=== PATIENT | female | born 1975 | race Two or more races ===

== ENCOUNTER 2024-05-23 17:42 | Inpatient (IN) | payer OTHER ==
[2024-05-23 18:22] VITALS: BMI 26.9
[2024-05-23] MEDS ORDERED: BISMUTH SUBSALICYLATE 524 MG/30 ML PO PRN (18:36)
[2024-05-23] MEDS ORDERED: LOPERAMIDE HCL 2 MG CAPSULE PO PRN (18:36)
[2024-05-23] MEDS ORDERED: BENZONATATE 200 MG CAPSULE PO PRN (18:36)
[2024-05-23] MEDS ORDERED: POLYETHYLENE GLYCOL (HEALTHYLAX) 3350 17 GM PACKET PO PRN (18:36)
[2024-05-23] MEDS ORDERED: ACETAMINOPHEN 325 MG TABLET (FP) PO PRN (18:36)
[2024-05-23] MEDS ORDERED: MAGNESIUM HYDROX 2400MG/30ML ORAL SUSPENSION 30 ML CUP PO PRN (18:36)
[2024-05-23] MEDS ORDERED: IBUPROFEN 400 MG TABLET (FP) PO PRN (18:36)
[2024-05-23] MEDS ORDERED: ONDANSETRON *ODT* 4 MG TABLET SL PRN (18:36)
[2024-05-23] MEDS ORDERED: BENZOCAINE/MENTHOL (CHLORASEPTIC ) LOZENGE MM PRN (18:36)
[2024-05-23] MEDS ORDERED: MAG HYDROX/AL HYDROX/SIMETH 30 ML UNIT-DOSE CUP PO PRN (18:36)
[2024-05-23] MEDS ORDERED: guaiFENesin 600 MG TABLET.ER (FP) PO PRN (18:36)
[2024-05-23] MEDS ORDERED: IBUPROFEN 600 MG TABLET (FP) PO PRN (18:36)
[2024-05-23] MEDS: METOPROLOL TARTRATE 25 MG TABLET (FP) PO ONE (19:26)
[2024-05-23] MEDS ORDERED: METOPROLOL TARTRATE 25 MG TABLET (FP) ONE (19:28)
[2024-05-23] MEDS: THIAMINE 100 MG TABLET PO SCH (22:03)
[2024-05-23] MEDS: METHOCARBAMOL 500 MG TABLET PO PRN (22:03)
[2024-05-23] MEDS: MELATONIN 5 MG TABLETS PO SCH (22:03)
[2024-05-23] MEDS: diazePAM 5 MG TABLET PO SCH (22:03)
[2024-05-24] MEDS: PRENATAL VITAMINS W/ FOLIC ACID TABLET (FP) PO SCH (10:31)
[2024-05-24] MEDS: amLODIPine BESYLATE 5 MG TABLET (FP) PO SCH (10:31)
[2024-05-24] MEDS: DICYCLOMINE HCL 10 MG CAPSULE PO PRN (10:32)
[2024-05-24 14:53] LABS: HEMATOCRIT 35.6 % (32.4-45.2); HEMOGLOBIN 11.1 GM/dL (10.7-15.3); MCH 24.5 pg (25.7-33.7); MCHC 31.2 g/dl (32.0-36.0); MEAN CELL VOLUME 78.5 fl (80-96); MEAN PLT VOLUME 7.9 fl (7.5-11.1); PLATELET COUNT 369 10^3/uL (134-434); RBC 4.53 M/mm3 (3.60-5.2); RDW 19.5 % (11.6-15.6); WHITE BLOOD COUNT 5.3 K/mm3 (4.0-10.0)
[2024-05-24 15:00] LABS: POTASSIUM 4.4 mmol/L (3.5-5.1)
[2024-05-24 15:02] LABS: CALCIUM 8.5 mg/dL (8.5-10.1)
[2024-05-24 15:03] LABS: ALBUMIN 3.2 g/dl (3.4-5.0); BLOOD UREA NITROGEN 7.5 mg/dL (7-18)
[2024-05-24 15:06] LABS: CREATININE 0.7 mg/dL (0.55-1.3)
[2024-05-24 15:08] LABS: BILIRUBIN,TOTAL 0.7 mg/dL (0.2-1); TOT PROT 7.6 g/dl (6.4-8.2)
[2024-05-24 15:56] LABS: HIV INTERPRETATION NEGATIVE (NEGATIVE)
[2024-05-25] MEDS: hydrOXYzine PAMOATE 25 MG CAPSULE (FP) PO PRN (05:30)
[2024-05-25] MEDS: diazePAM 5 MG TABLET PO SCH (05:30)
[2024-05-25] MEDS: diazePAM 5 MG TABLET PO PRN (10:11)
[2024-05-25] MEDS: LOPERAMIDE HCL 2 MG CAPSULE PO ONE (15:02)
[2024-05-25] MEDS: FAMOTIDINE 20 MG TABLET PO SCH (17:06)
[2024-05-26] MEDS: diazePAM 5 MG TABLET PO SCH (05:40)
[2024-05-27] MEDS: diazePAM 5 MG TABLET PO ONE (05:55)
[2024-05-27 10:10] VITALS: BP 128/91; PULSE 95; RESP 18; TEMP 97.8
== END 2024-05-27 09:51 | disposition home or self-care (01) | DRG 775 ==
LOC: YASAS 17:42 → Y6N 19:58
PROVIDERS: ADMIT Allergy & Immunology; ATTEND Surgery
PROC: HZ2ZZZZ Detoxification Services for Substance Abuse Treatment (ICD-10-PCS; principal; 2024-05-23)
DX: F10.230 Alcohol dependence with withdrawal, uncomplicated (principal); F10.282 Alcohol dependence with alcohol-induced sleep disorder; I10 Essential (primary) hypertension; J45.909 Unspecified asthma, uncomplicated; K21.9 Gastro-esophageal reflux disease without esophagitis; K29.20 Alcoholic gastritis without bleeding; Z59.01 Sheltered homelessness
CPT/HCPCS: 36415; 71045-TC-FY; 80053; 80305; 80307; 81025; 85027; 86780; 86803; 87389; 93005; 93010